=== PATIENT | female | born 1990 | race Caucasian/White ===

== ENCOUNTER 2017-06-21 14:48 | Emergency (ER) | payer OTHER ==
[~2017-06-21] VITALS: Ht 157.5 cm; Wt 61.2 kg
--- NOTE | 2017-06-21 16:44 | ED GI/GU/ABDOMINAL COMPLAINT ---
History of Present Illness General Chief Complaint: Abdominal Pain/Flank Pain Stated Complaint: ABDOMINAL PAIN DUE TO MENSES Source: patient Exam Limitations: no limitations Vital Signs & Intake/Output Vital Signs & Intake/Output Vital Signs Date Time Temp Pulse Resp B/P B/P Pulse O2 O2 Flow FiO2 Mean Ox Delivery Rate 06/21 1804 98.1 83 16 105/64 99 Room Air 06/21 1516 97.0 105 18 128/69 99 Room Air ED Intake and Output 06/22 0000 06/21 1200 Intake Total 0 Output Total Balance 0 Intake, Oral 0 Patient 135 lb Weight Weight Reported by Patient Measurement Method Allergies Coded Allergies: MDX - Morphine (MORPHINE) (N/V 07/24/11) Reconcile Medications Ibuprofen 800 MG TABLET 1 TAB PO TID pain Triage Note: PT TO ED FOR "BAD PERIOD PAIN" PT REPORTING PAIN HAS BEEN ONGOING SINCE APRIL, HAS NOT SEEN OB, PAIN RESOLVES WHEN SHE DOES NOT HAVE HER PERIOD AND THEN RETURNS THE FOLLOWING MONTH. REPORTING PAIN ONLY DURING PERIOD AND ON LEFT SIDE. Triage Nurses Notes Reviewed? yes ? n Is pt currently ? No Onset: Abrupt Duration: day(s): Timing: recent history Quality/Severity: moderate, sharpness, severe Location: generalized abdomen Radiation: no radiation Activities at Onset: none No Modifying Factors: none HPI: 27-year-old female comes into the emergency room with complaints of general abdominal cramping. Patient reports that for the last couple months she has had very painful menstrual periods. Her menstrual cycle has still been normal. Normal menstrual period last for about 4 days. She is on oral control. The pain comes on severely it takes her breath away. Sharp cramping. She comes in for further evaluation. (Flavio Hays) Past History Travel History Traveled to [place] past 21 day No Medical History Any Pertinent Medical History? none Neurological: NONE EENT: NONE Cardiovascular: NONE Respiratory: NONE Gastrointestinal: NONE Hepatic: NONE Renal: NONE Musculoskeletal: NONE Psychiatric: NONE Endocrine: NONE Blood Disorders: NONE Cancer(s): NONE Surgical History Surgical History: non-contributory Psychosocial History What is your primary language Cambodian Tobacco Use: Current Daily Use Daily Tobacco Use Amount/Type: => 5 Cigarettes daily ETOH Use: occasional use Illicit Drug Use: marijuana Family History Hx Contributory? No (Flavio Hays) Review of Systems Review of Systems Constitutional: Reports: no symptoms. EENTM: Reports: no symptoms. Respiratory: Reports: no symptoms. Cardiovascular: Reports: no symptoms. GI: Reports: see HPI. Genitourinary: Reports: see HPI. Musculoskeletal: Reports: no symptoms. Skin: Reports: no symptoms. Neurological/Psychological: Reports: no symptoms. Hematologic/Endocrine: Reports: no symptoms. Immunologic/Allergic: Reports: no symptoms. All Other Systems: Reviewed and Negative (Flavio Hays) Physical Exam Physical Exam General Appearance: well developed/nourished, no apparent distress, alert, awake Head: atraumatic, normal appearance Eyes: Bilateral: normal appearance, EOMI. Ears, Nose, Throat, Mouth: hearing grossly normal, moist mucous membrane Neck: normal inspection, full range of motion Respiratory: normal breath sounds, no respiratory distress Cardiovascular: regular rate/rhythm Gastrointestinal: soft, non-tender Back: normal inspection Extremities: normal range of motion Neurologic/Psych: awake, alert, oriented x 3, normal gait, normal mood/affect Skin: intact, normal color Core Measures ACS in differential dx? No Sepsis Present: No Sepsis Focused Exam Completed? No (Flavio Hays) Progress Differential Diagnosis: ectopic , ischemic bowel, intrauterine , ovarian cyst, ovarian torsion, perforated viscous, SBO, UTI/pyelo, dysmenorrhea Plan of Care: Orders Procedure Date/time Status COMPREHENSIVE METABOLIC PANEL 06/21 1650 Complete CBC WITHOUT DIFFERENTIAL 06/21 165 Complete URINE 06/21 1627 Complete URINALYSIS 06/21 1627 Complete Laboratory Tests 06/21/17 1650: Anion Gap 11, Estimated GFR > 60, BUN/Creatinine Ratio 17.1, Glucose 86, Calcium 9.6, Total Bilirubin 0.4, AST 18, ALT 21, Alkaline Phosphatase 50, Total Protein 7.5, Albumin 4.5, Globulin 3.0, Albumin/Globulin Ratio 1.5, CBC w Diff NO MAN DIFF REQ, RBC 4.38, MCV 88.8, MCH 29.7, MCHC 33.5, RDW 12.7, MPV 7.1 L, Gran % 69.1, Lymphocytes % 24.4, Monocytes % 4.0, Eosinophils % 2.0, Basophils % 0.5, Absolute Granulocytes 5.8, Absolute Lymphocytes 2.0, Absolute Monocytes 0.3, Absolute Eosinophils 0.2, Absolute Basophils 0 06/21/17 1638: Urine Color YEL, Urine Clarity HAZY H, Urine pH 6.0, Ur Specific [place] 1.020, Urine Protein TRACE H, Urine Ketones NEG, Urine Nitrite NEG, Urine Bilirubin NEG, Urine Urobilinogen 0.2, Ur Leukocyte Esterase TRACE H, Ur Microscopic SEDIMENT EXAMINED, Urine RBC >75 H, Urine WBC 1-3 H, Ur Epithelial Cells MANY H, Urine Bacteria MANY H, Urine Hemoglobin LARGE H, Urine Glucose NEG, Urine Test NEGATIVE Initial ED EKG: none Comments: 06/21/2017 6:00:13 PM Patient clinically looks well. Nontoxic-appearing. In no apparent distress. No acute abdomen exam. No abdominal pain. Follow-up with EDITOR MANAGING DIRECTOR doctor. Return if any concerns worsening symptoms. Understands and agrees with plan of care. (Kojo MCCLURE,Flavio) Departure Departure Disposition: HOME OR SELF CARE Condition: Stable Clinical Impression Primary Impression: Dysmenorrhea Referrals: Justyn GRIMM,Heladio Monroe (PCP/Family) Additional Instructions: Take ibuprofen 800 as prescribed. Start ibuprofen 24-48 hours prior to menstrual cycle. Return sooner if any other concerns worsening symptoms. Please go over all results of today's visit with your primary care doctor. Contact your primary care doctor to let them know you were here in the emergency room. There may be nonspecific findings which may not be related to your visit today here in the emergency room but may require further evaluation and chronic monitoring by your primary care doctor. If you had a laceration today the chance of foreign body always remains. You should follow-up with your primary care doctor for recheck in 3-5 days for a wound check. If you had an x-ray done there is a chance that a fracture could have been missed on initial read and you should follow-up with your primary care doctor for repeat x-rays if symptoms persist. If your blood pressure was elevated here in the emergency room please have rechecked by [facility] primary care doctor within the next 48. If you were prescribed a narcotic here in the emergency room or any type of controlled substances you're not allowed to drive while taking this medication or operate any type of heavy machinery. Narcotics can make you feel lightheaded dizziness nausea and can cause constipation. You may need to lease picker a stool softener. Thank you for choosing [facility] emergency room. Please return to the emergency room immediately if you have any other concerns worsening of symptoms. Departure Forms: Customer Survey General Discharge Information Prescriptions: Current Visit Scripts Ibuprofen 1 TAB PO TID #60 TAB (Flavio Hays) PA/MECHANICAL UNIT REPAIRER Co-Sign Statement Statement: ED Attending supervision documentation- [] I saw and evaluated the patient. I have also reviewed all the pertinent lab results and diagnostic results. I agree with the findings and the plan of care as documented in the PA's/MECHANICAL UNIT REPAIRER's documentation. [X] I have reviewed the ED Record and agree with the PA's/MECHANICAL UNIT REPAIRER's documentation. [] Additions or exceptions (if any) to the PAs/MECHANICAL UNIT REPAIRER's note and plan are summarized below: [] (Juanita GRIMM,Cassia)
[2017-06-21 17:03] LABS: ABSOLUTE BASOPHIL COUNT 0 /CUMM (0.0-0.2); ABSOLUTE EOSINOPHIL COUNT 0.2 /CUMM (0.0-0.7); ABSOLUTE GRANULOCYTE CT 5.8 /CUMM (1.4-6.5); ABSOLUTE MONOCYTE COUNT 0.3 /CUMM (0.10-0.60); BASOPHIL % 0.5 % (0.0-2.0); GRANULOCYTE % 69.1 % (42.2-75.2); HEMATOCRIT 38.9 % (37-47); MEAN CORPUSCULAR HGB 29.7 PG (27.0-31.0); MEAN CORPUSCULAR HGB CONC 33.5 G/DL (33.0-37.0); MEAN CORPUSCULAR VOLUME 88.8 FL (81.0-99.0); MEAN PLATELET VOLUME 7.1 FL (7.4-10.4); PLATELET COUNT 282 /CUMM (130-400); RBC DISTRIBUTION WIDTH 12.7 % (11.5-14.5); RED BLOOD CELL CT 4.38 /CUMM (4.20-5.40); WHITE BLOOD CELL COUNT 8.3 /CUMM (4.8-10.8)
[2017-06-21] MEDS ORDERED: IBUPROFEN800 M1 PO (17:55)
[2017-06-21 18:04] VITALS: BP 105/64
== END 2017-06-21 18:06 ==
LOC: ERH 14:48
PROVIDERS: Physician Assistant Medical
DX: N94.6 Dysmenorrhea, unspecified (principal)
CPT/HCPCS: 81001; 81025